=== PATIENT | female | born 1980 | race African-American/Black ===

== ENCOUNTER 2018-01-17 08:24 | Emergency (ER) | payer OTHER ==
[2018-01-17 09:23] LABS: Urine Blood NEGATIVE (NEG); Urine Glucose NEGATIVE (NEG); Urine Protein NEGATIVE (NEG); Urine Specific Gravity 1.025 (1.005-1.030)
--- NOTE | 2018-01-17 09:40 | RAD REPORT ---
EXAM DESCRIPTION: RAD - Chest Single View - 01/17/2018 9:21 am CLINICAL HISTORY: Left-sided chest pain following lifting injury COMPARISON: None. TECHNIQUE: AP portable chest image was obtained 0900 hours . FINDINGS: Lungs are clear. Heart and vasculature are normal. No measurable pleural effusion and no p neumothorax. No gross bony abnormality seen. No acute aortic findings suspected. IMPRESSION: No acute cardiopulmonary process.
--- NOTE | 2018-01-17 09:44 | RAD REPORT ---
EXAM DESCRIPTION: RAD - Ribs Left - 01/17/2018 9:22 am CLINICAL HISTORY: Left-sided chest and rib pain following lifting injury COMPARISON: None. FINDINGS: No displaced rib fractures present and no nondisplaced rib fractures identifiable. Rib fra ctures can be occult. Repeat imaging in approximately 7 days could be performed or bone scan could be performed if definitive fracture diagnosis would alter medical management. No aggressive rib lesion. No underlying pneumothorax, effusion, infiltrate or pulmonary contusion. IMPRESSION: No displaced rib fractures present and no nondisplaced rib fracture confirmed. No pneumothorax, pulmonary contusion or acute chest finding.
[2018-01-17] MEDS ORDERED: KETOROLAC 30 MG/ML INJ ONE (09:55)
--- NOTE | 2018-01-17 10:09 | EDPHYS ---
Physician Documentation [facility] Name: Haley Hassan Age: 37 yrs Sex: Female : 1980 Arrival Date: 01/17/2018 Time: 08:31 Bed 15 Private MD: DEYSI Physician Too Meng HPI: 01/17 08:50 This 37 yrs old Black Female presents to ER via Ambulatory with complaints of Pain - cp left rib. 08:50 The patient or guardian reports chest pain that is located primarily in the left cp lateral posterior chest and left lateral anterior chest. 08:50 The pain does not radiate. Associated signs and symptoms: Pertinent negatives: cp abdominal pain, cough, diaphoresis, dizziness, lower extremity pain, lower extremity swelling, near syncope, palpitations, recent travel, shortness of breath, syncope. The chest pain is described as sharp. Duration: The patient or guardian reports a single episode, that is still ongoing, and unchanged. Modifying factors: the symptoms are aggravated by deep breath, palpation of area. 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 - Social history:: Smoking status: Patient/guardian denies using tobacco. ROS: 09:00 Constitutional: Negative for body aches, chills, fever, poor PO intake. cp 09:00 Eyes: Negative for injury, pain, redness, and discharge. cp 09:00 ENT: Negative for drainage from ear(s), ear pain, sore throat, difficulty swallowing, difficulty handling secretions. 09:00 Cardiovascular: Positive for chest pain, of the left lower lateral rib area, Negative for edema, palpitations. 09:00 Respiratory: Negative for cough, shortness of breath, wheezing. 09:00 Abdomen/GI: Negative for abdominal pain, nausea, vomiting, and diarrhea, black/tarry stool, rectal bleeding. 09:00 Back: Negative for pain at rest, pain with movement, radiated pain. 09:00 : Negative for urinary symptoms. 09:00 Skin: Negative for cellulitis, rash. 09:00 Neuro: Negative for altered mental status, dizziness, headache, syncope, near syncope, weakness. 09:00 All other systems are negative. Exam: 09:05 Head/Face: Normocephalic, atraumatic. cp 09:05 Constitutional: The patient appears in no acute distress, alert, awake, non-diaphoretic, non-toxic, well developed, well nourished, obese. 09:05 Eyes: Pupils equal round and reactive to light, extra-ocular motions intact. Lids and cp lashes normal. Conjunctiva and sclera are non-icteric and not injected. Cornea within normal limits. Periorbital areas with no swelling, redness, or edema. ENT: Nares patent. No nasal discharge, no septal abnormalities noted. Tympanic membranes are normal and external auditory canals are clear. Oropharynx with no redness, swelling, or masses, exudates, or evidence of obstruction, uvula midline. Mucous membranes moist. Neck: Trachea midline, no thyromegaly or masses palpated, and no cervical lymphadenopathy. Supple, full range of motion without nuchal rigidity, or vertebral point tenderness. No Meningismus. 09:05 Chest/axilla: Inspection: normal, Palpation: crepitus, is not appreciated, tenderness, cp that is moderate, of the lower left lateral anterior chest and lower left lateral posterior chest, that partially reproduces the patient's complaints. 09:05 Cardiovascular: Rate: normal, Rhythm: regular, Pulses: Pulses are 2+ in right radial artery and left radial artery. Heart sounds: murmur, not appreciated, Edema: is not appreciated, JVD: is not appreciated. 09:05 Respiratory: the patient does not display signs of respiratory distress, Respirations: normal, no use of accessory muscles, no retractions, no splinting, no tachypnea, labored breathing, is not present, Breath sounds: are clear throughout, no decreased breath sounds, no stridor, no wheezing. 09:05 Abdomen/GI: Inspection: obese Bowel sounds: active, all quadrants, Palpation: soft, in all quadrants, nontender, in all quadrants, involuntary guarding, is not appreciated. 09:05 Back: pain, is absent, ROM is normal. 09:05 Skin: cellulitis, is not appreciated, no rash present. 09:05 Musculoskeletal/extremity: Exam is negative for calf tenderness, decreased range of cp motion, deformity, injury. 09:05 Neuro: Orientation: to person, place \T\ time. Mentation: lucid, able to follow commands, Cerebellar function: is grossly normal, Motor: moves all fours, strength is normal, Sensation: no obvious gross deficits, Gait: is steady. Vital Signs: 08:33 BP 137 / 98; Pulse 68; Resp 18; Temp 97.96; Pulse Ox 100% on R/A; Weight 120.2 kg; ph Height 5 ft. 8 in. (172.72 cm); Pain 8/10; 09:30 BP 132 / 87; Pulse 72; Resp 19; Pulse Ox 99% on R/A; rb1 10:28 BP 133 / 82; Pulse 69; Resp 18; Pulse Ox 100% on R/A; rb1 08:33 Body Mass Index 40.29 (120.20 kg, 172.72 cm) ph MDM: 08:37 Patient medically screened. cp 09:00 Differential diagnosis: acute pericarditis, chest wall pain, cholecystitis, cp Cholelithiasis costochondritis, pancreatitis, pulmonary embolus. 10:05 Data reviewed: vital signs, nurses notes, radiologic studies, plain films. cp 10:05 Test interpretation: by ED physician or midlevel provider: plain radiologic studies. cp Counseling: I had a detailed discussion with the patient and/or guardian regarding: the historical points, exam findings, and any diagnostic results supporting the discharge/admit diagnosis, radiology results, the need for outpatient follow up, a family practitioner, to return to the emergency department if symptoms worsen or persist or if there are any questions or concerns that arise at home. 01/17 08:57 Order name: Urine Dipstick--Ancillary (enter results); Complete Time: 09:50 bd 01/17 08:57 Order name: Urine --Ancillary (enter results); Complete Time: 09:50 bd 01/17 08:45 Order name: XRAY Ribs LEFT; Complete Time: 09:50 cp 01/17 09:50 Interpretation: Report reviewed. cp 01/17 08:45 Order name: XRAY Chest (1 view); Complete Time: 09:50 cp 01/17 09:51 Interpretation: Report review. cp 01/17 08:45 Order name: Urine Dipstick-Ancillary (obtain specimen); Complete Time: 09:21 cp 01/17 08:45 Order name: Urine Test (obtain specimen); Complete Time: 09:21 cp Administered Medications: 09:59 Drug: TORadol 60 mg Route: IM; Site: right gluteus; ph 10:22 Follow up: Response: No adverse reaction; Pain is decreased rb1 Disposition: 16:37 Co-signature as Attending Physician, Too Meng MD I agree with the assessment and billie plan of care. Disposition: 01/17/18 10:08 Discharged to Home. Impression: Other chest pain - Left Lateral Rib Pain. - Condition is Stable. - Discharge Instructions: Musculoskeletal Pain. - Prescriptions for Cyclobenzaprine 10 mg Oral Tablet - take 1 tablet by ORAL route every 8 hours As needed no driving while taking medication; 20 tablet. Diclofenac Sodium 75 mg Oral Tablet Sustained Release - take 1 tablet by ORAL route 2 times per day; 30 tablet. - Work release form, Medication Reconciliation Form, Thank You Letter, Antibiotic Education, Prescription Opioid Use form. - Follow up: Private Physician; When: 5 - 6 days; Reason: Recheck today's complaints. - Problem is new. - Symptoms have improved. Signatures: Dispatcher [employer] EDToo Zamarripa MD MD cha Hall, Patricia, RN RN ph Too Bautista PA PA cp Georgina Serrano, RN RN rb1 Corrections: (The following items were deleted from the chart) 10:47 10:08 01/17/2018 10:08 Discharged to Home. Impression: Other chest pain - Left Lateral rb1 Rib Pain. Condition is Stable. Forms are Medication Reconciliation Form, Thank You Letter, Antibiotic Education, Prescription Opioid Use. Follow up: Private Physician; When: 5 - 6 days; Reason: Recheck today's complaints. Problem is new. Symptoms have improved. cp
--- NOTE | 2018-01-17 10:09 | ER ---
Nurse's Notes [facility] Name: Haley Hassan Age: 37 yrs Sex: Female : 1980 Arrival Date: 01/17/2018 Time: 08:31 Bed 15 Private MD: Diagnosis: Other chest pain-Left Lateral Rib Pain Presentation: 01/17 08:31 Presenting complaint: Patient states: " I filled up a gas can for my tractor yesterday ph and I guess it was too heavy because since I picked it up my L side has been hurting." Reports pain in L rib area, pain w/ respiration, denies SOB. Transition of care: patient was not received from another setting of care. Onset of symptoms was January 17, 2018. Initial Sepsis Screen: Does the patient meet any 2 criteria? No. Patient's initial sepsis screen is negative. Does the patient have a suspected source of infection? No. Patient's initial sepsis screen is negative. Care prior to arrival: None. 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 - Social history:: Smoking status: Patient/guardian denies using tobacco. Screenin:35 Abuse screen: Denies threats or abuse. Nutritional screening: No deficits noted. rb1 Tuberculosis screening: No symptoms or risk factors identified. Fall Risk None identified. Assessment: 08:35 General: Appears in no apparent distress. comfortable, obese, Behavior is calm, rb1 cooperative. Pain: Complains of pain in left lateral ribs Pain currently is 8 out of 10 on a pain scale. Pain began 1 day ago. Neuro: Level of Consciousness is awake, alert, obeys commands, Oriented to person, place, time, situation, Denies weakness numbness. Cardiovascular: Capillary refill < 3 seconds is brisk in bilateral fingers. Respiratory: Reports pain with respiration Airway is patent Respiratory effort is even, unlabored, Respiratory pattern is regular, symmetrical. GI: No signs and/or symptoms were reported involving the gastrointestinal system. : No signs and/or symptoms were reported regarding the genitourinary system. Derm: Skin is dry, Skin is normal, Skin temperature is warm. Musculoskeletal: Range of motion: intact in all extremities. 09:30 Reassessment: Patient appears in no apparent distress at this time. No changes from rb1 previously documented assessment. 10:30 Reassessment: Patient and/or family updated on plan of care and expected duration. Pain rb1 level reassessed. Patient is alert, oriented x 3, equal unlabored respirations, skin warm/dry/pink. Vital Signs: 08:33 BP 137 / 98; Pulse 68; Resp 18; Temp 97.96; Pulse Ox 100% on R/A; Weight 120.2 kg; ph Height 5 ft. 8 in. (172.72 cm); Pain 8/10; 09:30 BP 132 / 87; Pulse 72; Resp 19; Pulse Ox 99% on R/A; rb1 10:28 BP 133 / 82; Pulse 69; Resp 18; Pulse Ox 100% on R/A; rb1 08:33 Body Mass Index 40.29 (120.20 kg, 172.72 cm) ph ED Course: 08:31 Patient arrived in ED. ph 08:32 Triage completed. ph 08:34 Georgina Serrano, RN is Primary Nurse. rb1 08:34 Arm band placed on. ph 08:35 Patient has correct armband on for positive identification. Bed in low position. Call rb1 light in reach. Side rails up X 1. Pulse ox on. NIBP on. 08:37 Too Bautista PA is PHCP. cp 08:37 Too Meng MD is Attending Physician. cp 09:20 X-ray completed. Patient tolerated procedure well. Patient moved back from radiology. jb2 09:21 XRAY Ribs LEFT In Process Unspecified. EDMS 09:21 XRAY Chest (1 view) In Process Unspecified. EDMS 10:47 No provider procedures requiring assistance completed. Patient did not have IV access rb1 during this emergency room visit. Administered Medications: 09:59 Drug: TORadol 60 mg Route: IM; Site: right gluteus; ph 10:22 Follow up: Response: No adverse reaction; Pain is decreased rb1 Outcome: 10:08 Discharge ordered by . cp 10:47 Patient left the ED. rb1 10:47 Discharged to home ambulatory. rb1 10:47 Condition: stable 10:47 Discharge instructions given to patient, Instructed on discharge instructions, follow up and referral plans. medication usage, Demonstrated understanding of instructions, follow-up care, medications, Prescriptions given X 2. Signatures: Dispatcher [employer] EDMN Zach Wu2 Lrudes Bailey, RN RN Too Shin PA PA cp Barber, Rebecca, RN RN rb1
== END 2018-01-17 10:47 | disposition home or self-care (01) ==
LOC: ER 08:24
DX: R07.81 Pleurodynia (principal); I10 Essential (primary) hypertension; Z88.8 Allergy status to other drugs, medicaments and biological substances
CPT/HCPCS: 71045; 81003; 81025; 96372; 99284